=== PATIENT | male | born 1970 | race Caucasian/White ===

== ENCOUNTER → 2024-10-29 08:05 | Outpatient (REF) | payer OTHER, SELFPAY | LOC: WOUND 08:05 | PROVIDERS: ATTENDING PHYSICIAN Surgery | DX: S91.012A Laceration without foreign body, left ankle, initial encounter (principal); L97.322 Non-pressure chronic ulcer of left ankle with fat layer exposed; I10 Essential (primary) hypertension; W22.8XXA Striking against or struck by other objects, initial encounter | CPT/HCPCS: 11042; 99203 ==

== ENCOUNTER → 2024-11-05 09:24 | Outpatient (REF) | payer OTHER, SELFPAY | LOC: WOUND 09:24 | PROVIDERS: ATTENDING PHYSICIAN Surgery | DX: S91.012A Laceration without foreign body, left ankle, initial encounter (principal); L97.322 Non-pressure chronic ulcer of left ankle with fat layer exposed; I10 Essential (primary) hypertension; I87.2 Venous insufficiency (chronic) (peripheral); W22.09XA Striking against other stationary object, initial encounter | CPT/HCPCS: 11042 ==

== ENCOUNTER → 2024-11-13 11:27 | Outpatient (REF) | payer OTHER, SELFPAY | LOC: WOUND 11:27 | PROVIDERS: ATTENDING PHYSICIAN Surgery; FAMILY PHYSICIAN Family Medicine | DX: L97.322 Non-pressure chronic ulcer of left ankle with fat layer exposed (principal); I10 Essential (primary) hypertension; I87.2 Venous insufficiency (chronic) (peripheral); S91.012A Laceration without foreign body, left ankle, initial encounter; X58.XXXA Exposure to other specified factors, initial encounter | CPT/HCPCS: 99213 ==

== ENCOUNTER → 2024-11-16 08:58 | Outpatient (REF) | payer OTHER, SELFPAY | LOC: RAD 08:58 | PROVIDERS: ATTENDING PHYSICIAN Surgery; FAMILY PHYSICIAN Family Medicine | DX: S91.012S Laceration without foreign body, left ankle, sequela (principal); I87.2 Venous insufficiency (chronic) (peripheral) | CPT/HCPCS: 93971 ==

== ENCOUNTER → 2024-11-27 13:55 | Outpatient (REF) | payer OTHER, SELFPAY | LOC: WOUND 13:55 | PROVIDERS: ATTENDING PHYSICIAN Surgery | DX: S91.012A Laceration without foreign body, left ankle, initial encounter (principal); L97.322 Non-pressure chronic ulcer of left ankle with fat layer exposed; I10 Essential (primary) hypertension; I87.2 Venous insufficiency (chronic) (peripheral); X58.XXXA Exposure to other specified factors, initial encounter | CPT/HCPCS: 11042 ==

== ENCOUNTER → 2024-12-04 10:56 | Outpatient (REF) | payer OTHER, SELFPAY | LOC: DHSLP 10:56 | PROVIDERS: ATTENDING PHYSICIAN Internal Medicine; FAMILY PHYSICIAN Family Medicine | DX: G47.33 Obstructive sleep apnea (adult) (pediatric) (principal); R06.83 Snoring | CPT/HCPCS: 95800 ==

== ENCOUNTER → 2024-12-10 09:12 | Outpatient (REF) | payer OTHER, SELFPAY | LOC: WOUND 09:12 | PROVIDERS: ATTENDING PHYSICIAN Surgery; FAMILY PHYSICIAN Family Medicine | DX: S91.012A Laceration without foreign body, left ankle, initial encounter (principal); L97.322 Non-pressure chronic ulcer of left ankle with fat layer exposed; I10 Essential (primary) hypertension; I87.2 Venous insufficiency (chronic) (peripheral); W22.8XXA Striking against or struck by other objects, initial encounter; Y93.01 Activity, walking, marching and hiking | CPT/HCPCS: 11042 ==

== ENCOUNTER → 2024-12-17 08:55 | Outpatient (REF) | payer OTHER, SELFPAY | LOC: WOUND 08:55 | PROVIDERS: ATTENDING PHYSICIAN Surgery; FAMILY PHYSICIAN Family Medicine | DX: S91.012A Laceration without foreign body, left ankle, initial encounter (principal); L97.322 Non-pressure chronic ulcer of left ankle with fat layer exposed; I10 Essential (primary) hypertension; I87.2 Venous insufficiency (chronic) (peripheral); W22.8XXA Striking against or struck by other objects, initial encounter; Y93.01 Activity, walking, marching and hiking | CPT/HCPCS: 11042 ==

== ENCOUNTER → 2024-12-24 08:52 | Outpatient (REF) | payer OTHER, SELFPAY | LOC: WOUND 08:52 | PROVIDERS: ATTENDING PHYSICIAN Surgery; FAMILY PHYSICIAN Family Medicine | DX: S91.012A Laceration without foreign body, left ankle, initial encounter (principal); L97.322 Non-pressure chronic ulcer of left ankle with fat layer exposed; I10 Essential (primary) hypertension; I87.2 Venous insufficiency (chronic) (peripheral); W22.8XXA Striking against or struck by other objects, initial encounter | CPT/HCPCS: 99213 ==

== ENCOUNTER → 2025-01-08 09:27 | Outpatient (REF) | payer OTHER, SELFPAY | LOC: WOUND 09:27 | PROVIDERS: ATTENDING PHYSICIAN Surgery; FAMILY PHYSICIAN Family Medicine | DX: S91.012A Laceration without foreign body, left ankle, initial encounter (principal); L97.322 Non-pressure chronic ulcer of left ankle with fat layer exposed; I10 Essential (primary) hypertension; I87.2 Venous insufficiency (chronic) (peripheral); X58.XXXA Exposure to other specified factors, initial encounter | CPT/HCPCS: 11042 ==

== ENCOUNTER → 2025-01-21 08:48 | Outpatient (REF) | payer OTHER, SELFPAY | LOC: WOUND 08:48 | PROVIDERS: ATTENDING PHYSICIAN Surgery; FAMILY PHYSICIAN Family Medicine | DX: I87.311 Chronic venous hypertension (idiopathic) with ulcer of right lower extremity (principal); L97.212 Non-pressure chronic ulcer of right calf with fat layer exposed; I87.2 Venous insufficiency (chronic) (peripheral); I73.9 Peripheral vascular disease, unspecified; I89.0 Lymphedema, not elsewhere classified; E66.01 Morbid (severe) obesity due to excess calories | CPT/HCPCS: 99212 ==